=== PATIENT | male | born 1995 | race Two or more races ===

== ENCOUNTER 2017-12-13 21:18 | Emergency (ER) | payer SELFPAY | END 2017-12-13 21:32 | disposition left against medical advice (07) | LOC: ER 21:18 | DX: Z20.2 Contact with and (suspected) exposure to infections with a predominantly sexual mode of transmission (principal); Z53.21 Procedure and treatment not carried out due to patient leaving prior to being seen by health care provider ==

== ENCOUNTER 2017-12-21 15:14 | Emergency (ER) | payer MEDICAID ==
[2017-12-21] MEDS: LIDOCAINE WITH 8.4% SOD BICARB 3 ML DISP.SYRIN. INJ (16:32)
[2017-12-21] MEDS: DIPHTH,PERTUSS(ACELL),TET TOX 0.5 ML DISP.SYRIN. VAX IM (16:32)
== END 2017-12-21 17:07 | disposition home or self-care (01) ==
LOC: ER 15:14
DX: S51.812A Laceration without foreign body of left forearm, initial encounter (principal); W18.39XA Other fall on same level, initial encounter; Y93.89 Activity, other specified; Y99.8 Other external cause status; Y92.89 Other specified places as the place of occurrence of the external cause
CPT/HCPCS: 12001; 90471; 90715; 99283-25